=== PATIENT | female | born 1995 | race Caucasian/White ===

== ENCOUNTER 2025-03-15 15:54 | Emergency (ER) | payer BC, SELFPAY ==
--- NOTE | ~2025-03-15 | XR_ITS ---
CHEST RADIOGRAPH, PA AND LATERAL CLINICAL HISTORY: CP . COMPARISON: None available TECHNIQUE: PA and lateral views of the chest. FINDINGS The cardiomediastinal silhouette is unremarkable. The lungs are clear. IMPRESSION: No focal infiltrate or effusion. Reviewed, dictated and finalized at location A.
--- OUTSIDE RECORDS SUMMARY | 2025-03-15 15:56 | XMS_ITS | Encounter Summary ---
Author Organization [facility] Address [address] [place] [address] Care Team Providers Care Comic Illustrator Name Role Phone None, Provider Primary Care Provider Ana Calderon [facility] Primary Care Provider + Encounter Details Date Type Department Care Team (Late st Contact Info) Description 10/03/2020 Medication Management [facility] Medical Group Family & Internal Medicine [address] [address] Los Trammell MD Social History Tobacco Use Types Packs/Day Years Used Date Smoking Tobacco: Never Assessed Comments Unknown Sex and Gender Information Value Date Recorded Sex Assigned at Female 12/07/2024 6:38 PM CDT Legal Sex Female 2:47 PM CDT Gender Identity Not on file Sexual Orientation Not on file documented as of this encounter Plan of Treatment Not on file documented as of this encounter Visit Diagnoses Not on filedocumented in this encounter Care Teams Comic Illustrator Relationship Specialty Start Date End Date None, Provider, PCP - General 01/22/22 04/24/22 Ana Dowling, [facility] [address] [place] [phone] PCP - General NURSE PRACTITIONER 04/25/22 documented as of this encounter
--- OUTSIDE RECORDS SUMMARY | 2025-03-15 15:56 | XMS_ITS | Clinical Summary ---
Author Organization [facility] Address [address] [place] [address] Care Team Providers Care Mold Insert Changer Name Role Phone Ana Dowling [facility] Primary Care Provider + Allergies No known active allergies Medications naproxen 500 MG tablet Take 1 tablet (500 mg total) by mouth 2 (two) times daily with meals. 15 tablet 01/22/2022 Active methylPREDNISol one, MEHDI, (MEDROL DOSEPAK) 4 MG tablet 6 TABLETS ON DAY ONE, 5 TABLETS DAY TWO, 4 TABLETS DAY THREE, 3 TABLETS DAY FOUR, 2 TABLETS DAY FIVE, AND 1 TABLET DAY SIX 1 each 04/25/2022 Active Active Problems No known active problems Social History Tobacco Use Types Packs/Day Years Used Date Smoking Tobacco: Never Assessed Comments No Sex and Gender Information Value Date Recorded Sex Assigned at Female 12/07/2024 6:38 PM CDT Legal Sex Female 2:47 PM CDT Gender Identity Not on file Sexual Orientation Not on file Last Filed Vital Signs Vital Sign Reading Time Taken Comments Blood Pressure 134/90 12/07/2024 6:10 PM CDT Pulse 92 12/07/2024 6:10 PM CDT Temperature 36.2 C (97.1 F) 12/07/2024 6:10 PM CDT Respiratory Rate 20 12/07/2024 6:10 PM CDT Oxygen Saturation 99% 12/07/2024 6:10 PM CDT Inhaled Oxygen Concentration - - Weight 70.3 kg (155 lb) 12/07/2024 6:10 PM CDT Height 165.1 cm (5' 5) 12/07/2024 6:10 PM CDT Body Mass Index 25.79 12/07/2024 6:10 PM CDT Plan of Treatment Health Maintenance Due Date Last Done Comments Cervical Cancer Screening Pap Smear (Age 30 to 64) Every 3 Years 1994 Annual Physical 1997 DTaP, Tdap and Td Vaccines (5 - Tdap) 2005 12/19/1999, 05/14/1995, 03/04/1995, Additional history exists Hepatitis C 2012 HPV Vaccines (1 - 3-dose SCDM series) 2021 COVID-19 Vaccine ( season) 2024 08/24/2021, 07/27/2021 Cervical Cancer Screening Pap with HPV Testing (Age 30 to 64) Every 5 Years 2024 Cervical Cancer Screening with HPV 2024 Hepatitis B Vaccines Completed 09/05/1995, 01/18/1995, 1994 Meningococcal B Vaccine Aged Out No l onger eligible based on patient's age to complete this topic Meningococcal Vaccine Aged Out No eric bibi eligible based on patient's age to complete this topic Pneumococcal Vaccine: Pediatrics (0 to 5 Years) and At-Risk Patients (6 to 49 Years) Aged Out No longer eligible based on patient's age to complete this topic RSV Immunizations Under 20 Months Aged Out No longer eligible based on patient's age to complete this topic Insurance [facility] Care Teams Mold Insert Changer Relationship Specialty Start Date End Date Ana Dowling FNP- [address] [place] [phone] PCP - General NURSE PRACTITIONER 04/25/22
--- OUTSIDE RECORDS SUMMARY | 2025-03-15 15:56 | XMS_ITS | Data Portability ---
Author Organization [facility], [place] Address [address] [place] [address] Assessment Encounter Date Assessment Date Assessment LastModified by Organization Details LastModified Time 12/11/2019 12/11/2019 Annual gynecological exam performed. Patient will come back in a year unless there are new symptoms. Call if desires nexplanon, will place on pt cycle Not available 12/11/2019 12:06:02 Plan of Treatment Reminders Order Date Submit Date Provider Last Modified By Organization Details Last Modified Time Details Appointments None record ed. Lab None record ed. Referral None record ed. Procedures None record ed. Surgeries None record ed. Imaging None record ed. Medication Orders None record ed. Patient TargetsNo targets recorded. Patient Instructions Encounter Date Encounter Id Patient Instructions Last Modified By Organization Details Last Modified Time 12/11/2019 [id number] Suggest Calcium with Vitamin D if not eating in diet. Patient advised to get annual flu shot. Recommend yearly physicals and preform monthly breast exams. Genetic testing is available for patients with family history of cancer. Engage in safe sexual practices, use condoms. Encouraged to have daily exercise. Avoid tobacco and illicit drugs, moderation of alcohol. If BMI greater than 25 dietary consult advised. If you have any questions please call or email. Not available 12/11/2019 12:06:07 03/29/2020 [id number] surgical trays* TEMI Not available 04/02/2021 05:05:59 Reason for Referral None Reported. Results Created Date Observation Date Name Description Value Unit Range Abnormal Flag Note LastModifiedBy Organization Detail LastModifiedTime 12/11/1912/14/2019 pap, LB Pap test thin prep Negati ve for Intrae pithel ial Lesion or Malign ric normal ACCES DERRICK #: [id number] Sourc e: Cervi keerthi/E ndoce rvica l LMP: 2019 Date Taken : 12/10 Speci men Type: ThinP rep Vial Date Repor anthony: 2019 Clini keerthi Data: Cytot ech: Nandaben Ramos , CT (ASCP ) Date Repor anthony: 2019 Speci men Adequ acy: Satis facto ry for evalu ation Endoc ervic al/tr ansfo rmati on zone compo nent prese nt Gener al Categ oriza tion: NEGAT HEBERT FOR INTRA EPITH ELIAL LESIO N OR MALIG IZZY This speci men has been kelly zed by the ThinP rep Imagi ng Syste m, an inter activ e compu ter syste m which rosa ts the lab in the scree lee of ThinP rep Pap Test slide s. Follo wing imagi ng, the slide was revie wed by a Cytot echno logis t and/o r Patho logis t. End of Repor t Techn ical servi ruth provi ded by [facility], [address] [place] [address] Noah Adhikari MD, [facility] tor. Case revie wed and diagn osis rende red at [facility], d/[facility], [address] [place] [address] Noah Adhikari MD, [facility] tor. CONFI DENTI AL Not Available [facility] ([facility]) [address], [place], [address], 12/14/2019 12:38:45 Result Notes None recorded. Problems Name Problem SNOMED Code Status Onset Date Resolution Date Notes Provider Name and Address Organization Details Recorded Time Screening for malignant neoplasm of cervix Active 2012 Screening for malignant neoplasms of the cervix;Rec orded Elsewhere: No Locatio n: [facility] rce: EHR Chroni c: N Practice ID: [id number] Billa ble Time: 03:30:00 PM Not Available [facility] 0 16:02:23 Specializ ed medical examinati on Active 2012 Gynecologi keerthi Examinatio n;Recorded Elsewhere: No Locatio n: [facility] rce: EHR Chroni c: N Practice ID: [id number] Billa ble Time: 03:30:00 PM Not Available [facility] 0 16:02:23 test negative [id number] Active 2012 examinatio n or test, negative result;Rec orded Elsewhere: No Locatio n: [facility] rce: EHR Chroni c: N Practice ID: [id number] Billa ble Time: 02:00:00 PM Not Available [facility] 0 16:02:23 Implantat ion of subcutane ous contracep tive Active 2012 Insertion of implantabl e subdermal contracept hebert;Record ed Elsewhere: No Locatio n: [facility] rce: EHR Chroni c: N Practice ID: [id number] Billa ble Time: 02:00:00 PM Not Available [facility] 0 16:02:[address] Concept Active 2015 Encntr for security guard exam (general) (routine) w/o abn findings;R ecorded Elsewhere: No Locatio n: [facility] rce: EHR Chroni c: N Practice ID: [id number] Billa ble Time: 01:00:00 PM Not Available [facility] 0 16:02:23 Procedure Active 2015 Encounter for checking, reinsertio n or removal of implantabl e subdermal contracept hebert;Record ed Elsewhere: No Locatio n: [facility] rce: EHR Chroni c: N Practice ID: [id number] Billa ble Time: 03:00:00 PM Not Available [facility] 0 16:02:23 Problem Notes None recorded. Procedures Surgical History Date Name Laterality Status Provider Name and Address Organization Details Recorded Time 0 Control Implant Insertion completed Citlalli Felton CNM [address], [place], [address], [facility] 03/29/2020 15:25:59 0 Control Implant Removal completed Citlalli Felton CNM [address], [place], [address], [facility] 12/11/2019 12:05:42 0 Date of Last Pap Smear completed Eunice Ferguson [facility] 12/11/2019 19:05:30 0 procedure on tongue completed Eunicewild Ferguson [facility] 12/11/2019 19:08:23 Imaging Results None recorded. Procedure Notes None recorded. Medical Equipment None Reported. Allergies No known drug allergies Medications Name Sig Start Date Stop Date Status Note LastModified by Organization Details LastModified Time Concerta 18 mg tablet,ex tended release take 1 tablet by oral route every day in the morning 06/26 completed Prescrib ed Abhi e: Yes Loca tion: Candida oden [facility] M odify By: [email or web address] Antoni r DateTime : 04/22/20 13 03:30:00 PM Not Available Not Available Not Available Nexplanon 68 mg subdermal implant Inject by subcutan eous route. 2019 active inserted 03/29/2020 and will 03/29/2024 Not Available Not Available Not Available Vyvanse 10 mg capsule active Not Available Not Available Not Available Vitals Date Recorded Body height Body mass index (BMI) Body weight Systolic And Diastolic Provider Name and Address Organization Details Last Updated DateTime 12/11/2019 166.37 cm 29.3 kg/m2 80380.03 g 141/96 mm[Hg] Eunice Ferguson [facility] 12/11/2019 19:04:57 Date Recorded Body height Body mass index (BMI) Body weight Systolic And Diastolic Provider Name and Address Organization Details Last Updated DateTime 03/29/2020 166.37 cm 29 kg/m2 96394.85 g 140/95 mm[Hg] Eunice Ferguson [facility] 03/29/2020 15:20:50 Social History Question Answer Notes LastModified by Organizat ion Details LastModified Time Tobacco Smoking Status Never Smoker Eunice Ferguson [facility], [facility] 12/11/2019 19:07:48 What Was The Date Of Your Most Recent Tobacco Screening? 03/29/2020 Information not available 03/30/2020 How Much Tobacco Do You Smoke? No [email or web address] Information not available 03/30/2020 Sex: Unknown Functional Status Question Answer Note LastModified by Organizat ion Details LastModified Time What is your level of alcohol consumption? Occasional Information not available 12/11/2019 Do you or have you ever used smokeless tobacco? Never used smokeless tobacco [email or web address] Information not available 03/30/2020 Do you or have you ever used e-cigarettes or vape? Never used electronic cigarettes [email or web address] Information not available 03/30/2020 What is your exercise level? Occasional [email or web address] Information not available 12/11/2019 Mental Status None recorded. Family History Relationship Description Onset Age of this Age Resolved Age Notes LastModified by Organization Details LastModified Time Maternal Grandmother Diabetes mellitus [email or web address] Not available 12/10 19:07:37 Paternal Grandmother Diabetes mellitus [email or web address] Not available 03/30 14:03:20 Mother Cyst of ovary [email or web address] Not available 03/30 14:03:40 Notes:Mother: Ovarian CYst P aternal grandmother: Diabetes mellitus Medical History No medical history recorded. Gynecological History Statement/Question Response Date of LMP 11/13/2019 Date of Last Pap Smear 12/11/2019 Current Control Method Implant 13 Desired Control Method LMP Definite Obstetrics History GPAL:G 0 P 0 0 0 0 Past Encounters Encounter ID Performer Location Encounter Start Date Encounter Closed Date Diagnosis/Indication Diagnosis SNOMED-CT Code Diagnosis ICD10 Code Diagnosis Note [id number] Citlalli Felton CNM [place] [address] [address] 12/11/2019 11:12:14 12/11/2019 14:09:17 [id number] Citlalli Felton CNM [place] [address] [address] 03/29/2020 14:44:04 03/29/2020 15:57:27 Implantation of subcutaneous contraceptive 577631949 Z30.9 Health Concerns Section Related Observation LastModified by Organization Detai ls LastModified Time None Recorded Concern Status LastModified by Organization Details LastModified Time None Recorded Advance Directives Directive None Recorded Payers Insurance Date Sequence Insurance Name Policy Number Policy Hartman Covered Member ID Hartman Member ID Guarantor Name 12/11/2019 1 [employer] - DOS PRIOR TO 21 - [facility] [employer] (HMO) Nigel Lawton [id number] Anastasiya Lawton Notes Date Note Type Note Provider Name and Address Organization Details Recorded Time 12/11/2019 text/html Annual GYNReport ed bypatient.Menstrua l cycle:Normal menses Urinary symptoms:No hematuria; No incontinence Vulva:No genital lesion Vagina:Normal vaginal discharge Breast:No breast pain; No breast lump; No nipple discharge Sexual complaints:No sexual complaints; No pain during intercourse; Normal libido Menopausal Symptoms:No menopausal symptoms; Normal vaginal lubrication Psychological symptoms:No depression; No anxiety; No PMDDNotes:pt would like nexplanon removed, unsure what bcm she wants now Citlalli Felton CNM [address], [place], [address], [facility] 12/11/2019 12:06:44 03/29/2020 text/html here for nexplan on placement upt neg, reviewed risks had had in past, consent signed Citlalli Felton CNM [address], [place], [address], [facility] 03/29/2020 15:26:27 OBGyn Episode No OBEpisode recorded.
--- NOTE | 2025-03-15 16:14 | ECG_ITS ---
Test Date: 2025-03-15 16:27:13 Measurements Intervals Edelstein Rate: 102 P: 40 CT: 181 QRS: 89 QRSD: 87 T: 22 QT: 336 QTc: 439 Interpretive Statements SINUS TACHYCARDIA LOW QRS VOLTAGE IN PRECORDIAL LEADS [QRS DEFLECTION < 1.0 mV IN CHEST LEADS] NONSPECIFIC T-WAVE ABNORMALITY ABNORMAL RHYTHM ECG No previous ECG available for comparison Electronically Signed On 03-16-2025 16:32:27 CDT by Laura Beltran M.D.
[2025-03-15 16:15] VITALS: BP 141/84; PULSE 100; PULSE 114; RESP 16; RESP 18; TEMP 36.2; O2SAT 100
--- OUTSIDE RECORDS SUMMARY | 2025-03-15 17:24 | XMS_ITS | Clinical Summary ---
Author Organization [facility] Address [address] [place] [address] Care Team Providers Care Supervisor Bindery Name Role Phone Ana Dowling [facility] Primary Care Provider + Allergies No known [...] patient's age to complete this topic Insurance [facility] Care Teams Supervisor Bindery Relationship Specialty Start Date End Date Ana Dowling FNP- [address] [place] [phone] PCP - General NURSE PRACTITIONER 04/25/22
--- OUTSIDE RECORDS SUMMARY | 2025-03-15 17:24 | XMS_ITS | Encounter Summary ---
Author Organization [facility] Address [address] [place] [address] Care Team Providers Care Software Build Engineer Name Role Phone None, Provider Primary Care Provider Ana Calderon [facility] Primary Care Provider + Encounter Details Date Type Department Care Team (Late st Contact Info) Description 10/03/2020 Medication Management [facility] Medical Group Family & Internal Medicine [address] [address] Los Trammell MD Social History [...] on filedocumented in this encounter Care Teams Software Build Engineer Relationship Specialty Start Date End Date None, Provider, PCP - General 01/22/22 04/24/22 Ana Dowling, [facility] [address] [place] [phone] PCP - General NURSE PRACTITIONER 04/25/22 documented as of this encounter
[2025-03-15 17:25] VITALS: O2SAT 98
--- NOTE | 2025-03-15 17:31 | ED_ITS ---
HPI - SOB/Dyspnea General Chief Complaint: Shortness of Breath/Dyspnea Stated Complaint: dyspnea, chest tightness Time Seen by Provider: 03/15/25 17:09 Source: patient Mode of arrival: EMS Limitations: no limitations History of Present Illness HPI Narrative: This is a 29-year-old female that presents emergency department for chest tightness, shortness of breath. Worse with deep breathing. Reports this has been ongoing over the last several weeks. She started to experience some chest and back discomfort after a fall in the shower. Reports the pain has progressively worsened. She tried to go to work today and by the afternoon the pain became too unbearable. She was driving herself to the ER when she started to experience tingling in her arm and around her lips, so she called 911. Related Data Allergies Allergy/AdvReac Type Severity Reaction Status Date / Time No Known Allergies Allergy Mild Verified 03/15/25 16:15 Review of Systems 2 Review of Systems: All systems reviewed & are unremarkable except as noted in HPI and below PMFSH Past Medical History Medical History ADHD Anxiety Surgical History Surgical History No history of previous surgery Family History Family History Mother Depression Grandparent No problems noted. Social History Social History Smoking status: Never smoker Alcohol intake: never Substance use: never Substance use type: does not use Lack of Transportation: No Lack of Food: Never True Current Housing: I Have Housing Concerned About Future Housing: No Difficulty Paying Gas/Electric Bills: No Difficulty Paying for Meds: No Currently Unemployed: No Education: High School Diploma/GED Difficulty w/ Childcare or Family Care: No Living arrangements: with friend(s) Additional living arrangements comments: boyfriend Occupation/Education: occupation Gender identity (if verbalized by the patient): Female Exam 2 Narrative: GENERAL: Well-appearing, well-nourished, and in no acute distress. HEAD: Normocephalic, atraumatic. EYES: EOMI. CHEST: Clear to auscultation. No respiratory distress. No wheezes rales or rhonchi HEART: Regular rate and rhythm. No murmur heard. Normal peripheral pulses. EXTREMITIES: Normal range of motion. No edema. SKIN: Warm, dry, no rash. NEURO: No focal deficits. Alert and oriented x3. PSYCH: Normal mood and affect Course Course Emergency Course: Patient updated on her workup. Resting comfortably Vital Signs Vital signs: Vital Signs Temperature 97.2 F L 03/15/25 16:15 Pulse Rate 114 H 03/15/25 16:15 Respiratory Rate 18 03/15/25 16:15 Blood Pressure 141/84 H 03/15/25 16:15 Pulse Oximetry 100 03/15/25 16:15 Temperature 97.2 F L 03/15/25 16:15 Pulse Rate 96 03/15/25 19:18 Respiratory Rate 15 03/15/25 19:18 Blood Pressure 147/92 H 03/15/25 19:18 Pulse Oximetry 100 03/15/25 19:18 Oxygen Delivery Room Air 03/15/25 17:25 MDM - SOB/Dyspnea MDM Narrative Medical decision making narrative: Patient presents the emergency department for pleuritic chest pain. Tachycardic upon arrival, this normalized with IV fluids. CBC and metabolic panel without concerning findings. EKG without acute ST changes, baseline and 3 hour troponin are negative. D-dimer is not elevated. Chest x-ray without acute cardiopulmonary abnormality. Patient updated on her workup and agrees with plan of care. Resting comfortably after Toradol. She is to follow up with primary provider. She was given warnings to return to the ER Differential Diagnosis Differential diagnosis: Likely community acquired pneumonia, pulmonary embolism and other (muscle strain, contusion, rib fracture) Lab Data Attestation: I reviewed the patient's lab results. 03/15/25 17:41 03/15/25 17:41 Labs: Lab Results 03/15/25 03/15/25 03/15/25 Range/Units 17:41 17:41 17:41 WBC 9.3 (4.5-10.0) K/mm3 RBC 4.40 (4.2-5.4) M/mm3 Hgb 13.0 (12.0-15.0) g/dL Hct 38.8 (37.0-47.0) % MCV 88.2 (80-100) fl MCH 29.5 (26-34) pg MCHC 33.5 (32-36) g/dl RDW 12.6 (11.5-14.5) % Plt Count 479 H (150-375) k/mm3 MPV 9.9 (7.4-10.4) fl Immature Gran % (Auto) 0.4 (0-0.5) % Neut % (Auto) 65.5 (45.5-73.1) % Lymph % (Auto) 23.9 (18.3-44.2) % [place] % (Auto) 9.7 H (2.6-8.5) % Eos % (Auto) 0.0 (0-4.4) % Baso % (Auto) 0.5 (0.2-1.2) % Lymph # (Auto) 2.22 (0.9-3.2) K/mm3 [place] # (Auto) 0.9 H (0.1-0.6) K/mm3 Eos # (Auto) 0.0 (0-0.3) K/mm3 Baso # (Auto) 0.1 (0.0-0.1) K/mm3 Abs Immat Gran (auto) 0.04 H (0.00-0.031) K/mm3 Absolute Neuts (auto) 6.1 (1.3-6.7) K/mm3 Absolute Nucleated RBC 0.000 (0.0-0.012) K/mm3 Nucleated RBC % 0.0 (0.0-0.2) % PT Cancelled 14.0 INR Cancelled 1.1 APTT Cancelled D-Dimer (<0.48) ug/mL Sodium (137-145) mmol/L Potassium (3.4-5.0) mmol/L Chloride (98-107) mmol/L Carbon Dioxide (22-30) mmol/L Anion Gap (4-12) mmol/L BUN (7-17) mg/dL Creatinine (0.7-1.0) mg/dL Estim Creat Clear Calc ml/min Estimated GFR (59 - ) Glucose (65-110) mg/dL Calcium (8.4-10.2) mg/dL Total Bilirubin (0.2-1.3) mg/dL AST (14-36) U/L ALT (6-35) U/L Alkaline Phosphatase (38-126) U/L Troponin I (0.000-0.034) ng/mL Total Protein (6.3-8.2) g/dL Albumin (3.5-5.1) g/dL Lipase (23-300) U/L POC Urine HCG, Qual (Negative) 03/15/25 03/15/25 03/15/25 Range/Units 17:41 18:50 20:06 WBC (4.5-10.0) K/mm3 RBC (4.2-5.4) M/mm3 Hgb (12.0-15.0) g/dL Hct (37.0-47.0) % MCV (80-100) fl MCH (26-34) pg MCHC (32-36) g/dl RDW (11.5-14.5) % Plt Count (150-375) k/mm3 MPV (7.4-10.4) fl Immature Gran % (Auto) (0-0.5) % Neut % (Auto) (45.5-73.1) % Lymph % (Auto) (18.3-44.2) % [place] % (Auto) (2.6-8.5) % Eos % (Auto) (0-4.4) % Baso % (Auto) (0.2-1.2) % Lymph # (Auto) (0.9-3.2) K/mm3 [place] # (Auto) (0.1-0.6) K/mm3 Eos # (Auto) (0-0.3) K/mm3 Baso # (Auto) (0.0-0.1) K/mm3 Abs Immat Gran (auto) (0.00-0.031) K/mm3 Absolute Neuts (auto) (1.3-6.7) K/mm3 Absolute Nucleated RBC (0.0-0.012) K/mm3 Nucleated RBC % (0.0-0.2) % PT INR APTT 23.0 D-Dimer 0.28 (<0.48) ug/mL Sodium 135 L (137-145) mmol/L Potassium 4.0 (3.4-5.0) mmol/L Chloride 103 (98-107) mmol/L Carbon Dioxide 23 (22-30) mmol/L Anion Gap 9 (4-12) mmol/L BUN 16 (7-17) mg/dL Creatinine 0.64 L (0.7-1.0) mg/dL Estim Creat Clear Calc 99 ml/min Estimated GFR > 60 (59 - ) Glucose 90 (65-110) mg/dL Calcium 9.5 (8.4-10.2) mg/dL Total Bilirubin 0.6 (0.2-1.3) mg/dL AST 29 (14-36) U/L ALT 14 (6-35) U/L Alkaline Phosphatase 56 (38-126) U/L Troponin I < 0.012 < 0.012 (0.000-0.034) ng/mL Total Protein 8.7 H (6.3-8.2) g/dL Albumin 4.9 (3.5-5.1) g/dL Lipase 101 (23-300) U/L POC Urine HCG, Qual Negative (Negative) Imaging Data Radiologist's impression: ITS Impressions Chest X-Ray 03/15/25 17:26 IMPRESSION: No focal infiltrate or effusion. ECG Data EKG #1: ECG completion date: 03/15/25 EKG Interpretation: tachycardia, sinus rhythm, no ST changes and normal QT Critical Care Time Critical Care Time Critical Care Time: No Discharge Plan Discharge Clinical Impression: Chest wall pain Patient Disposition: Home Condition: Stable Instructions: Chest Wall Pain (ED) Additional Instructions: Return to the ER if you experience fever, cough, worsening chest pain/shortness of breath, weakness, numbness, or any other symptoms that are concerning to you Rest, use ice/heat, take anti-inflammatories (Aleve, Ibuprofen, Naproxen, etc) or Tylenol as needed for pain as well as muscle relaxer (Flexeril) as needed for pain. Muscle relaxers can make you drowsy, do not drive if you take this. Lidocaine patch to the area of pain as needed Follow up with your primary care doctor Patient Language: [place] Prescriptions: New lidocaine 5 % adhesive patch,medicated 1 patch topical DAILY Qty: 15 0RF Rx Instructions: leave on most painful area for up to 12 hrs cyclobenzaprine 10 mg tablet 10 mg PO TID PRN (Reason: muscle spasm) Qty: 14 0RF No Action dextroamphetamine-amphetamine 15 mg tablet 15 mg PO BID Qty: 60 0RF Rx Instructions: administer doses at least 4-6 hours apart Follow-up/Referrals: Ana Dowling APRN [Primary Care Provider] - Quality HEART score for chest pain patients History: slightly suspicious ECG: normal Age: < or = to 45 years Risk factors: no risk factors known Troponin: < or = to 1x normal limit Heart score: 0
[2025-03-15] MEDS: SODIUM CHLORIDE 0.9% IV 1,000 ML 999 ML IV CONT (17:43)
[2025-03-15] MEDS: KETOROLAC 15 MG/ML VIAL (*BKC) IV PUSH (17:43)
[2025-03-15 17:58] LABS: Hematocrit 38.8 % (37.0-47.0); Hemoglobin 13.0 g/dL (12.0-15.0); Immature Granulocyte Percent A 0.4 % (0-0.5); Lymphocytes Absolute Auto 2.22 K/mm3 (0.9-3.2); Mean Corpuscular HGB Conc 33.5 g/dl (32-36); Mean Corpuscular Hemoglobin 29.5 pg (26-34); Mean Corpuscular Volume 88.2 fl (80-100); Nucleated Red Blood Cells Absolute Auto 0.000 K/mm3 (0.0-0.012); Nucleated Red Blood Cells Perc 0.0 % (0.0-0.2); Platelet Count Result 479 k/mm3 (150-375); Red Blood Count 4.40 M/mm3 (4.2-5.4); White Blood Count 9.3 K/mm3 (4.5-10.0)
[2025-03-15 18:17] LABS: INR 1.1; Partial Thromboplastin Time 23.0 Seconds (22.3-36.8); Prothrombin Time 14.0 Seconds (11.1-14.7)
[2025-03-15 18:27] LABS: Alanine Aminotransferase 14 U/L (6-35); Albumin Level 4.9 g/dL (3.5-5.1); Alkaline Phosphatase 56 U/L (38-126); Anion Gap 9 mmol/L (4-12); Aspartate Amino Transferase 29 U/L (14-36); Bilirubin,Total 0.6 mg/dL (0.2-1.3); Blood Urea Nitrogen 16 mg/dL (7-17); Calcium 9.5 mg/dL (8.4-10.2); Carbon Dioxide 23 mmol/L (22-30); Chloride 103 mmol/L (98-107); Estimated CRCL calculation 99 ml/min; Estimated Glomerular Filt Rate > 60; Glucose 90 mg/dL (65-110); Lipase 101 U/L (23-300); Potassium 4.0 mmol/L (3.4-5.0); Sodium 135 mmol/L (137-145); Total Protein 8.7 g/dL (6.3-8.2)
[2025-03-15 18:41] LABS: Troponin I < 0.012 ng/mL (0.000-0.034)
[2025-03-15 18:42] VITALS: PULSE 92
[2025-03-15 18:51] LABS: BEDSIDEPREGUCG Negative (Negative)
[2025-03-15 19:18] VITALS: BP 147/92; PULSE 96; RESP 15; O2SAT 100
--- NOTE | 2025-03-15 20:05 | ECG_ITS ---
Test Date: 2025-03-15 20:05:44 Measurements Intervals [place] Rate: 86 P: 9 HI: 210 QRS: 87 QRSD: 92 T: 10 QT: 359 QTc: 431 Interpretive Statements SINUS RHYTHM WITH FIRST DEGREE AV BLOCK LOW QRS VOLTAGE IN PRECORDIAL LEADS [QRS DEFLECTION < 1.0 mV IN CHEST LEADS] NONSPECIFIC T WAVE ABNORMALITY Compared to ECG 03/15/2025 16:27:13 Sinus tachycardia no longer present Electronically Signed On 03-16-2025 16:37:28 CDT by Laura Beltran M.D.
[2025-03-15 20:49] LABS: Troponin I < 0.012 ng/mL (0.000-0.034)
[2025-03-15 21:36] VITALS: BP 112/88; PULSE 95; RESP 15; TEMP 36.9; O2SAT 99
== END 2025-03-15 21:38 | disposition home or self-care (01) ==
PROVIDERS: Emergency Medicine; Emergency Provider Physician Assistant; PCP Nurse Practitioner Family
DX: R07.89 Other chest pain (principal); R00.0 Tachycardia, unspecified; F90.9 Attention-deficit hyperactivity disorder, unspecified type; F41.9 Anxiety disorder, unspecified
CPT/HCPCS: 36415; 71046; 80053; 81025; 83690; 84484; 85025; 85380; 85610; 85730; 93005; 96361; 96374; 99284; J1885; J7030